=== PATIENT | female | born 1970 | race Caucasian/White ===

== ENCOUNTER 2016-07-06 11:14 | Emergency (ER) | payer SELFPAY ==
[2016-07-06] MEDS ORDERED: ASPIRIN TABLET 325 MG TAB ONE (11:32)
[2016-07-06 11:41] VITALS: TEMP 97.9
[2016-07-06] MEDS ORDERED: ASPIRIN TABLET 325 MG TAB PO ONE (11:42)
--- NOTE | 2016-07-06 11:46 | RAD ---
EXAM DESCRIPTION: Chest,1 View CLINICAL HISTORY: chest pain COMPARISON: November 13, 2015 IMPRESSION: Single AP portable upright view of the chest shows mild enlargement of cardiac silhouette without pulmonary vascular congestion. Lungs are normally aerated and clear. No obvious pleural effusion or pneumothorax is seen. Electronically signed by: Anuj Sheffield MD 07/06/2016 11:45 AM [facility]
[2016-07-06] MEDS ORDERED: MAGNESIUM SULFATE PREMIX 2GM 2 GM in PREMIX BAG 1 BAG IVPB ONE (13:11)
[2016-07-06] MEDS ORDERED: MAGNESIUM SULFATE PREMIX 2GM 50 ML IVPB ONE (13:20)
[2016-07-06] MEDS ORDERED: LIDOCAINE VIS-MYLANTA 30 ML UD PO ONE (13:42)
--- NOTE | 2016-07-06 15:32 | ED.PDOC ---
History of Present Illness - General Chief Complaint: Chest Pain/VT Stated Complaint: chest pain Time Seen by Provider: 07/06/16 11:45 Source: patient Exam Limitations: no limitations - History of Present Illness Initial Comments: the patient is a 45-year-old female presenting to the emergency room secondary to chest pain that radiates up her neck into her scalp. The patient has had similar episodes in the past. She is currently having gastrointestinal issues that is being worked up by her primary care doctor and has been on a very restricted diet for the last 7-8 months. She has lost 30-40 pounds according to her in that time. She admits to not being very well-hydrated. 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 She is not really short of breath. The pain is fairly superficial and her chest wall on both sides of her sternum significantly uncomfortable to palpation. No vomiting. Questionable nausea. No CV or near syncope. No palpitations. She is not previously had any heart issues. No rash. No sore throat. No fever. Again she does have multiple chronic GI issues. Timing/Duration: 1 hour Severity: moderate Improving Factors: rest Worsening Factors: movement Associated Symptoms: malaise, weakness Allergies/Adverse Reactions: Allergies Ampicillin Allergy (Verified 11/13/15 10:20) Home Medications: Ambulatory Orders ALPRAZolam [Xanax] 0.5 mg PO QAM 01/29/14 Cephalexin [Keflex] 500 mg PO BID #14 cap 01/29/14 Lisinopril 20 mg PO QAM 01/29/14 Alum & Mag Hydrox-Simethicone [Mylanta] 0 ml PO TID #60 ud 11/13/15 Amlodipine Besylate [Norvasc] 2.5 mg PO QAM #30 tab 11/13/15 Omeprazole Magnesium [Prilosec Otc] 20 mg PO QAM #30 tab 11/13/15 Review of Systems - Review of Systems Constitutional: States: no symptoms reported EENTM: States: no symptoms reported Respiratory: States: no symptoms reported Cardiology: States: chest pain Gastrointestinal/Abdominal: States: see HPI Genitourinary: States: no symptoms reported Musculoskeletal: States: other - chest wall pain Skin: States: no symptoms reported Neurological: States: anxiety Endocrine: States: no symptoms reported All other Systems: No Change from Baseline Past Medical History (General) - Patient Medical History Hx Seizures: No Hx Stroke: No Hx Dementia: No Hx Asthma: No Hx of COPD: No Hx Cardiac Disorders: No Hx Congestive Heart Failure: No Hx Pacemaker: No Hx Hypertension: Yes Hx Thyroid Disease: No Hx Diabetes: No Hx Gastroesophageal Reflux: No Hx Renal Disease: No Hx Cancer: No Hx of HIV: No Hx Hepatitis C: No Hx MRSA: No - Vaccination History Hx Tetanus, Diphtheria Vaccination: No Hx Influenza Vaccination: No Hx Pneumococcal Vaccination: No - Social History Hx Tobacco Use: No Hx Alcohol Use: No Hx Substance Use: No Hx Substance Use Treatment: No Hx Depression: No - Female History Patient is a Female of Child Bearing Age (10 -59 yrs old): Yes Patient : No Family Medical History - Family History Mother Living Status: Still Living Physical Exam - Physical Exam General Appearance: Alert, Anxious, No apparent distress Eye Exam: bilateral normal Ears, Nose, Throat: normal ENT inspection, normal pharynx Neck: non-tender, full range of motion, supple Respiratory: lungs clear, normal breath sounds, no respiratory distress, no accessory muscle use, other - chest wall is still uncomfortable to palpation as described above Cardiovascular/Chest: normal peripheral pulses, regular rate, rhythm, no edema Peripheral Pulses: radial,right: 2+, radial,left: 2+, dorsalis pedis,right: 2+, dorsalis pedis,left: 2+ Gastrointestinal/Abdominal: normal bowel sounds, non tender, soft Rectal Exam: deferred Back Exam: normal inspection, no CVA tenderness Extremity: normal range of motion, non-tender, normal inspection, no pedal edema , normal capillary refill Neurologic: 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 Repeat EKGs and cardiac enzymes are reassuring. The patient does have some hypomagnesemia which may be contributing to the muscle spasms and was given 2 g of magnesium sulfate here. The patient does have significant dietary restrictions and she is likely getting deficient on some vitamins and micronutrients. I recommend that she take a Centrum Silver in one form or another daily to help reduce this issue. Additionally she will be written for magnesium oxide daily for the next 2 weeks. She needs to keep well hydrated and follow up with her primary care doctor for continuation of the evaluation of her gastrointestinal issues. Additionally I would recommend a simple exercise tolerance test for this patient for further risk stratification. For now I do recommend holding the aspirin due to her gastrointestinal issues. Return to the emergency room for any acute worsening. she does need follow-up with her primary care doctor towards the end of this week or early next week. - Results/Orders Results/Orders: Laboratory Tests 07/06/16 07/06/16 07/06/16 11:30 11:50 14:55 WBC 12.3 H RBC 4.21 Hgb 14.2 Hct 41.5 MCV 98.4 MCH 33.8 H MCHC 34.3 RDW 13.3 Plt Count 424 H MPV 7.2 L Absolute Neuts (auto) 7.60 H Absolute Lymphs (auto) 3.70 H Absolute Monos (auto) 0.70 Absolute Eos (auto) 0.10 Absolute Basos (auto) 0.20 H Neutrophils % 61.9 Lymphocytes % 30.3 Monocytes % 5.6 Eosinophils % 1.0 Basophils % 1.2 PT 11.1 INR 0.980 PTT (SP) 31.0 D-Dimer, Quantitative < 200 Sodium 134 L Potassium 3.7 Chloride 95 L Carbon Dioxide 29 Anion Gap 13.7 BUN 13 Creatinine 0.68 BUN/Creatinine Ratio 19.1 Random Glucose 101 Serum Osmolality 268.5 L Calcium 9.3 Magnesium 1.6 L Total Bilirubin 0.4 Direct Bilirubin 0.1 Indirect Bilirubin 0.3 AST 33 ALT 29 Alkaline Phosphatase 85 Creatine Kinase 101 91 CK-MB (CK-2) 3.0 CK-MB (CK-2) % Not Reportable Troponin I < 0.02 < 0.02 B-Natriuretic Peptide 53.2 Serum Total Protein 7.3 Albumin 3.5 Amylase 42 Lipase 37 TSH 1.71 Urine Color Yellow Urine Appearance Clear Urine pH 6.5 Ur Specific [place] 1.020 Urine Protein Negative Urine Glucose (UA) Negative Urine Ketones Negative Urine Blood Moderate H Urine Nitrite Negative Urine Bilirubin Negative Urine Urobilinogen 0.2 Ur Leukocyte Esterase Negative Urine RBC 1-3 Urine WBC 0-1 Ur Epithelial Cells 3-5 Urine Bacteria 1+ Urine Trichomonas 0-1 H Urine HCG, Qual Negative chest x-ray appears benign. Initial and repeat EKGs show normal sinus rhythm. Nonspecific T-wave abnormalities. No acute ST segment depression or elevation. Departure - Departure Clinical Impression: Chest wall discomfort, Hypomagnesemia Disposition: Discharge to Home or Self Care Condition: Fair Departure Forms: ED Discharge - Pt. Copy, Patient Portal Self Enrollment Instructions: DI for Atypical Chest Pain Diet: other - Resume patient's lactose-free and gluten-free diet Activity: increase activity as tolerated Home Medications: Ambulatory Orders ALPRAZolam [Xanax] 0.5 mg PO QAM 01/29/14 Cephalexin [Keflex] 500 mg PO BID #14 cap 01/29/14 Lisinopril 20 mg PO QAM 01/29/14 Alum & Mag Hydrox-Simethicone [Mylanta] 0 ml PO TID #60 ud 11/13/15 Amlodipine Besylate [Norvasc] 2.5 mg PO QAM #30 tab 11/13/15 Omeprazole Magnesium [Prilosec Otc] 20 mg PO QAM #30 tab 11/13/15 Additional Instructions: the patient is a 45-year-old female presenting with chest pain that appears to be musculoskeletal in nature from the chest wall itself. Repeat EKGs and cardiac enzymes are reassuring. The patient does have some hypomagnesemia which may be contributing to the muscle spasms and was given 2 g of magnesium sulfate here. The patient does have significant dietary restrictions and she is likely getting deficient on some vitamins and micronutrients. I recommend that she take a Centrum Silver in one form or another daily to help reduce this issue. Additionally she will be written for magnesium oxide daily for the next 2 weeks. She needs to keep well hydrated and follow up with her primary care doctor for continuation of the evaluation of her gastrointestinal issues. Additionally I would recommend a simple exercise tolerance test for this patient for further risk stratification. For now I do recommend holding the aspirin due to her gastrointestinal issues. Return to the emergency room for any acute worsening. she does need follow-up with her primary care doctor towards the end of this week or early next week.
[2016-07-06 15:58] VITALS: BP 120/82; O2SAT 97
== END 2016-07-06 16:34 | disposition home or self-care (01) ==
LOC: ER 11:14
DX: R07.89 Other chest pain (principal); E83.42 Hypomagnesemia; I10 Essential (primary) hypertension; Z88.3 Allergy status to other anti-infective agents; Z79.899 Other long term (current) drug therapy
CPT/HCPCS: 36415; 71010; 80048; 80076; 81001; 81025; 82150; 82550; 82553; 83690; 83735; 83880; 84443; 84484; 85025; 85379; 85610; 85730; 93005; J3475

== ENCOUNTER 2017-01-25 13:14 | Emergency (ER) | payer SELFPAY ==
[2017-01-25 13:37] VITALS: BP 104/57; TEMP 98.6; O2SAT 95
--- NOTE | 2017-01-25 14:10 | ED.PDOC ---
History of Present Illness - General Chief Complaint: Abdominal Pain Stated Complaint: abdominal pain Time Seen by Provider: 01/25/17 14:07 Source: patient Exam Limitations: no limitations - History of Present Illness Initial Comments: Shanique Christian 46 y/o female stated she had been having "jakob horse" pain on her left side of her abdomen and also involves right side.She has Crohns w/IBS nad had multiple colonoscopy and egd in the past. Has chronic diarrhea.Had this in the past and was noted that she was low on magnesium Timing/Duration: 24 hours Severity: moderate Improving Factors: nothing Worsening Factors: nothing Associated Symptoms: loss of appetite, other - metallic taste in the tongue Allergies/Adverse Reactions: Allergies Ampicillin Allergy (Verified 01/25/17 13:37) Home Medications: Ambulatory Orders ALPRAZolam [Xanax] 0.5 mg PO QAM 01/29/14 Cephalexin [Keflex] 500 mg PO BID #14 cap 01/29/14 Lisinopril 20 mg PO QAM 01/29/14 Alum & Mag Hydrox-Simethicone [Mylanta] 0 ml PO TID #60 ud 11/13/15 Amlodipine Besylate [Norvasc] 2.5 mg PO QAM #30 tab 11/13/15 Omeprazole Magnesium [Prilosec Otc] 20 mg PO QAM #30 tab 11/13/15 Review of Systems - Review of Systems Constitutional: States: no symptoms reported EENTM: States: no symptoms reported Respiratory: States: no symptoms reported Cardiology: States: no symptoms reported Gastrointestinal/Abdominal: States: see HPI Genitourinary: States: no symptoms reported Past Medical History (General) - Patient Medical History Hx Seizures: No Hx Stroke: No Hx Dementia: No Hx Asthma: No Hx of COPD: No Hx Cardiac Disorders: No Hx Congestive Heart Failure: No Hx Pacemaker: No Hx Hypertension: Yes Hx Thyroid Disease: No Hx Diabetes: No Hx Gastroesophageal Reflux: No Hx Renal Disease: No Hx Cancer: No Hx of HIV: No Hx Hepatitis C: No Hx MRSA: No Hx Other PMH: Yes - Crohns/IBS Surgical History: appendectomy, other - - Vaccination History Hx Tetanus, Diphtheria Vaccination: No Hx Influenza Vaccination: No Hx Pneumococcal Vaccination: No - Social History Hx Tobacco Use: Yes Hx Alcohol Use: No Hx Substance Use: No Hx Substance Use Treatment: No Hx Depression: No - Female History Patient is a Female of Child Bearing Age (10 -59 yrs old): Yes Hx Last Menstrual Period: 01/16/17 Patient : No - Triage Comment ED Triage Comment: lmp- 1 week ago Family Medical History - Family History Mother Living Status: Still Living Hx Family Hypertension: Yes - dad Hx Family Stroke: Yes - dad Hx Family;Other: osteoporosis Physical Exam - Physical Exam General Appearance: Alert, No apparent distress Eye Exam: bilateral normal Ears, Nose, Throat: hearing grossly normal, normal ENT inspection, normal pharynx Neck: non-tender, supple Respiratory: chest non-tender, lungs clear, normal breath sounds Cardiovascular/Chest: normal peripheral pulses, regular rate, rhythm, no murmur Peripheral Pulses: radial,right: 1+, radial,left: 1+ Gastrointestinal/Abdominal: normal bowel sounds, soft, no organomegaly, tenderness - left side abdomen no peritoneal signs Back Exam: normal inspection, no CVA tenderness Extremity: normal range of motion, non-tender, no pedal edema, no calf tenderness Neurologic: no motor/sensory deficits, alert, oriented x 3 Skin Exam: warm/dry Lymphatic: no adenopathy Progress - Progress Progress: 01/25/17 14:16 Vital Signs - 8 hr 01/25/17 13:20 Temperature 98.6 F Pulse Rate [ 102 H pulse ox] Respiratory 20 Rate Blood Pressure 104/57 [Left Arm] O2 Sat by Pulse 95 Oximetry - Results/Orders Results/Orders: Declined further testing was upset after telling her that theres a treatment for crohns and ibs she mentioned that it was expensive and telling that she just eat chicken noodle soup and rice to prevent her from getting diarrhea.I stated that she needs to get help to get a goverment insurance.She walked out and left. Departure - Departure Clinical Impression: Abdominal pain Qualifiers: Abdominal location: upper abdomen, unspecified Qualified Code(s): R10.10 - Upper abdominal pain, unspecified Time of Disposition: 14:33 Disposition: Left Against Medical Advice Condition: Fair Departure Forms: ED Discharge - Pt. Copy, Patient Portal Self Enrollment Instructions: DI for Abdominal Pain-Adult Referrals: Gonzalez Fournier MD [Primary Care Provider] - 1-2 Weeks Home Medications: Ambulatory Orders ALPRAZolam [Xanax] 0.5 mg PO QAM 01/29/14 Cephalexin [Keflex] 500 mg PO BID #14 cap 01/29/14 Lisinopril 20 mg PO QAM 01/29/14 Alum & Mag Hydrox-Simethicone [Mylanta] 0 ml PO TID #60 ud 11/13/15 Amlodipine Besylate [Norvasc] 2.5 mg PO QAM #30 tab 11/13/15 Omeprazole Magnesium [Prilosec Otc] 20 mg PO QAM #30 tab 11/13/15
== END 2017-01-25 14:27 | disposition left against medical advice (07) ==
LOC: ER 13:14
DX: R10.10 Upper abdominal pain, unspecified (principal); K50.90 Crohn's disease, unspecified, without complications; K58.9 Irritable bowel syndrome, unspecified; I10 Essential (primary) hypertension; Z87.891 Personal history of nicotine dependence; Z88.3 Allergy status to other anti-infective agents

== ENCOUNTER → 2017-05-17 | Outpatient (CLI) | payer OTHER ==
--- NOTE | 2017-05-18 22:28 | US ---
EXAM DESCRIPTION: Breast,Left: Ultrasound CLINICAL HISTORY: 46 yearsFemaleLEFT BREAST LUMP COMPARISON: Digital 3-D tomosynthesis diagnostic mammogram, bilateral breasts on the same visit. TECHNIQUE: Transcutaneous scanning of the lateral left breast utilizing two-dimensional and Doppler modes. Scanning performed by the welding machine assembler and Dr. Hamilton. FINDINGS: Heterogeneous fibroglandular and fatty tissues. No discrete solid mass or cyst. No skin changes or parenchymal edema. No large calcifications. Normal Doppler appearance. IMPRESSION: 1. Bi-Rads Category 2: Benign. 2. Please refer to bilateral 3-D tomosynthesis diagnostic mammogram and report on the same visit The FINDINGS and the follow-up plan were reviewed in person with the patient after the examination. Written communication explaining the IMPRESSION and follow-up will be mailed to the patient and referring care provider. Electronically signed by: Wilner Hamilton MD 05/18/2017 10:27 PM [facility] Workstation: [id number]
== END | disposition home or self-care (01) ==
LOC: MAMMO 12:52
PROVIDERS: ATTEND Family Medicine
DX: N63.20 Unspecified lump in the left breast, unspecified quadrant (principal)
CPT/HCPCS: 76641; 77066; G0279

== ENCOUNTER → 2017-06-19 | Outpatient (CLI) | payer SELFPAY | LOC: LAB.O 14:05 | PROVIDERS: ATTEND General Practice | DX: R53.83 Other fatigue (principal); R23.3 Spontaneous ecchymoses ==

== ENCOUNTER 2017-06-20 14:51 | Emergency (ER) | payer SELFPAY ==
[2017-06-20 15:32] VITALS: TEMP 99.3
--- NOTE | 2017-06-20 16:15 | RAD ---
EXAM DESCRIPTION: Femur,Right CLINICAL HISTORY: posterior brusing of uncertain cause COMPARISON: None. TECHNIQUE: AP and lateral right femur FINDINGS: A small bone island is observed in the medial femoral condyle. No fracturing is detected. No evidence of joint effusion is seen. IMPRESSION: Normal right femur. Electronically signed by: Kamran Day MD 06/20/2017 4:14 PM [facility]
--- NOTE | 2017-06-20 16:16 | RAD ---
EXAM DESCRIPTION: Tibia/Fibula,Right CLINICAL HISTORY: posterior brusing of uncertain cause COMPARISON: None. TECHNIQUE: AP and lateral right tibia and fibula FINDINGS: Seen no bone joint or soft tissue abnormality. IMPRESSION: Normal right tibia and fibula. Electronically signed by: Kamran Day MD 06/20/2017 4:15 PM [facility]
--- NOTE | 2017-06-20 17:05 | ED.PDOC ---
History of Present Illness - General Chief Complaint: General Stated Complaint: right knee pain Time Seen by Provider: 06/20/17 15:41 Source: patient Exam Limitations: no limitations - History of Present Illness Initial Comments: the patient is a 46-year-old female presenting to the emergency room secondary to bruising tracking down the posterior aspect of her leg. It starts approximately mid posterior thigh and extends down to mid calf. She has good pulses. She has no tenderness to palpation towards the anterior calf, anterior thigh or anterior knee. All of her tenderness is in the area where she has bruising. This obviously is a deep tissue bleed that has bled superficially. There are no lacerations. No evidence of abrasion or superficial bruising. She has not had any irregular bleeding in the past. No bleeding of the gums. No heavy menses in the past. she is not on any blood thinners. She had a CBC done yesterday that looks roughly normal. No symptoms of anemia. She is uncertain what caused this. The pain however started with the bruising and most of it started approximately 3-4 inches above the knee posteriorly and somewhat laterally. I do feel the insertion of both hamstrings however there is tenderness proximally. I do not feel anydefinite balled up muscle there were definite mass. this is most likely due to a distal third lateral hamstring partial tear. She does appear to be neurovascularly intact. She believes the process started approximately 3 or 4 days ago. She reports that she just woke up with it. 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 This is the most likely source of trauma for her. She has not had any falls. the patient has no bruising elsewhere. She has no oral petechia. No conjunctival hemorrhage. Timing/Duration: unsure Severity: moderate Improving Factors: immobilization Worsening Factors: movement Associated Symptoms: denies symptoms Allergies/Adverse Reactions: Allergies Ampicillin Allergy (Verified 06/20/17 15:32) Home Medications: Ambulatory Orders ALPRAZolam [Xanax] 0.5 mg PO QAM 01/29/14 Cephalexin [Keflex] 500 mg PO BID #14 cap 01/29/14 Lisinopril 20 mg PO QAM 01/29/14 Alum & Mag Hydrox-Simethicone [Mylanta] 0 ml PO TID #60 ud 11/13/15 Amlodipine Besylate [Norvasc] 2.5 mg PO QAM #30 tab 11/13/15 Omeprazole Magnesium [Prilosec Otc] 20 mg PO QAM #30 tab 11/13/15 Review of Systems - Review of Systems Constitutional: States: no symptoms reported EENTM: States: no symptoms reported Respiratory: States: no symptoms reported Cardiology: States: no symptoms reported Gastrointestinal/Abdominal: States: no symptoms reported Genitourinary: States: no symptoms reported Musculoskeletal: States: see HPI Skin: States: see HPI Neurological: States: no symptoms reported Endocrine: States: no symptoms reported All other Systems: No Change from Baseline Past Medical History (General) - Patient Medical History Hx Seizures: No Hx Stroke: No Hx Dementia: No Hx Asthma: No Hx of COPD: No Hx Cardiac Disorders: No Hx Congestive Heart Failure: No Hx Pacemaker: No Hx Hypertension: Yes Hx Thyroid Disease: No Hx Diabetes: No Hx Gastroesophageal Reflux: No Hx Renal Disease: No Hx Cancer: No Hx of HIV: No Hx Hepatitis C: No Hx MRSA: No - Vaccination History Hx Tetanus, Diphtheria Vaccination: Yes Hx Influenza Vaccination: No Hx Pneumococcal Vaccination: No - Social History Hx Tobacco Use: Yes Hx Alcohol Use: No Hx Substance Use: No Hx Substance Use Treatment: No Hx Depression: No - Female History Hx Last Menstrual Period: 01/16/17 Patient : No Family Medical History - Family History Mother Living Status: Still Living Hx Family Hypertension: Yes - dad Hx Family Stroke: Yes - dad Hx Family;Other: osteoporosis Physical Exam - Physical Exam General Appearance: Alert, Comfortable, No apparent distress Eye Exam: bilateral normal Ears, Nose, Throat: hearing grossly normal, normal ENT inspection, normal pharynx Neck: full range of motion, supple, normal inspection Respiratory: no respiratory distress, no accessory muscle use Cardiovascular/Chest: normal peripheral pulses, no edema Peripheral Pulses: radial,right: 2+, radial,left: 2+, dorsalis pedis,right: 2+, dorsalis pedis,left: 2+, posterior tibialis,right: 2+, posterior tibialis,left: 2+ Gastrointestinal/Abdominal: non tender, soft Rectal Exam: deferred Extremity: normal range of motion, no pedal edema, normal capillary refill, other - ee history of present illness 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 Progress - Progress Progress: 06/20/17 17:08 the patient is a 46-year-old female with a posterior right leg deep tissue hematoma that is likely a result of a partial tear of her right distal third lateral hamstring. The patient does need to do gentle stretching exercises. Topical heat may help. Intermittent Tylenol and Motrin may help. X -rays were reassuring. If the patient has a recurrence of bleeding at this site or bleeding elsewhere or spontaneous bruising elsewhere then she may require additional workup including additional laboratory work and possibly a soft tissue MRI. She does understand this. She does need follow-up with her primary care doctor next week. Additionally she can obtain a compression stocking that is a long compression stocking to use to help reduce discomfort and any edema. ER warnings are given for any significant worsening. Departure - Departure Clinical Impression: Leg hematoma Qualifiers: Encounter type: initial encounter Laterality: right Qualified Code(s): S80.11XA - Contusion of right lower leg, initial encounter Disposition: Discharge to Home or Self Care Condition: Fair Departure Forms: ED Discharge - Pt. Copy, Patient Portal Self Enrollment Diet: regular diet Activity: increase activity as tolerated Referrals: Gonzalez Fournier MD [Primary Care Provider] - 1-2 Weeks Home Medications: Ambulatory Orders ALPRAZolam [Xanax] 0.5 mg PO QAM 01/29/14 Cephalexin [Keflex] 500 mg PO BID #14 cap 01/29/14 Lisinopril 20 mg PO QAM 01/29/14 Alum & Mag Hydrox-Simethicone [Mylanta] 0 ml PO TID #60 ud 11/13/15 Amlodipine Besylate [Norvasc] 2.5 mg PO QAM #30 tab 11/13/15 Omeprazole Magnesium [Prilosec Otc] 20 mg PO QAM #30 tab 11/13/15 Additional Instructions: the patient is a 46-year-old female with a posterior right leg deep tissue hematoma that is likely a result of a partial tear of her right distal third lateral hamstring. The patient does need to do gentle stretching exercises. Topical heat may help. Intermittent Tylenol and Motrin may help. X -rays were reassuring. If the patient has a recurrence of bleeding at this site or bleeding elsewhere or spontaneous bruising elsewhere then she may require additional workup including additional laboratory work and possibly a soft tissue MRI. She does understand this. She does need follow-up with her primary care doctor next week. Additionally she can obtain a compression stocking that is a long compression stocking to use to help reduce discomfort and any edema. ER warnings are given for any significant worsening.
[2017-06-20 17:19] VITALS: BP 131/67; O2SAT 93
== END 2017-06-20 17:19 | disposition home or self-care (01) ==
LOC: ER 14:51
DX: S80.11XA Contusion of right lower leg, initial encounter (principal); I10 Essential (primary) hypertension; Z87.891 Personal history of nicotine dependence; X58.XXXA Exposure to other specified factors, initial encounter; Y92.9 Unspecified place or not applicable

== ENCOUNTER → 2017-07-03 | Outpatient (CLI) | payer SELFPAY ==
--- NOTE | 2017-07-03 14:05 | US ---
EXAM DESCRIPTION:Venous,Lower Extremity RT CLINICAL HISTORY:PAIN COMPARISON: None TECHNIQUE: Grayscale and color Doppler sonographic evaluation of lower extremity deep venous structures. FINDINGS: Common femoral, superficial femoral , popliteal , peroneal and posterior tibial veins in right lower extremity are patent with full compressibility. No intraluminal filling defect identified in these deep venous structures. IMPRESSION: No sonographic evidence of deep venous thrombosis (DVT) in right lower extremity Electronically signed by: Los Whitaker MD 07/03/2017 2:04 PM [employer]INDING [employer]EL [employer]
== END ==
LOC: US 13:18
PROVIDERS: ATTEND General Practice
DX: M79.661 Pain in right lower leg (principal)

== ENCOUNTER 2017-07-05 10:42 | Emergency (ER) | payer SELFPAY ==
--- NOTE | 2017-07-05 11:25 | ED.PDOC ---
History of Present Illness - General Chief Complaint: Lower Extremity Injury Stated Complaint: bilateral leg pain; bruising Time Seen by Provider: 07/05/17 11:06 Source: patient - History of Present Illness Occurred: other - 3 WEEKS AGO Pain - Lower Extremity: moderate: Right Thigh/Hip, Right Leg, Right Knee, Right Calf, Left Foot Method of Injury: other - NO KNOWN TRAUMA Improving Factors: nothing Worsening Factors: movement Associated Symptoms: NONE Allergies/Adverse Reactions: Allergies Ampicillin Allergy (Verified 06/20/17 15:32) Home Medications: Ambulatory Orders ALPRAZolam [Xanax] 1 mg PO BID 01/29/14 Lisinopril 20 mg PO QAM 01/29/14 Ciprofloxacin 500 mg PO BID #10 ml 07/05/17 Citalopram Hydrobromide [Celexa] 10 mg PO DAILY 07/05/17 HYDROcodone 10MG/APAP 325MG [[place] 10/325] 0.5 ea PO Q4HR PRN 07/05/17 predniSONE 60 mg PO DAILY #15 tab 07/05/17 Review of Systems - Review of Systems Constitutional: Denies: fever, malaise, weakness EENTM: States: no symptoms reported, other - NO BLEEDING WITH TEETH BRUSHING Respiratory: Denies: cough, short of breath Cardiology: Denies: edema, palpitations Gastrointestinal/Abdominal: Denies: abdominal pain, diarrhea, nausea, vomiting Genitourinary: Denies: discharge, dysuria, frequency, hematuria Musculoskeletal: States: joint pain - RT KNEE, LEFT FOOT, muscle pain. Denies: joint swelling Skin: States: other - REPORTS BRUISING TO RT THIGH/RT CALF/LEFT FOOT Neurological: States: anxiety, depressed. Denies: numbness, paresthesia, tingling, tremors Endocrine: Denies: excessive sweating, flushing, intolerance to cold, intolerance to heat, increased hunger, increased thirst, increased urine Past Medical History (General) - Patient Medical History Hx Seizures: No Hx Stroke: No Hx Dementia: No Hx Asthma: No Hx of COPD: No Hx Cardiac Disorders: No Hx Congestive Heart Failure: No Hx Pacemaker: No Hx Hypertension: Yes Hx Thyroid Disease: No Hx Diabetes: No Hx Gastroesophageal Reflux: No Hx Renal Disease: No Hx Cancer: No Hx of HIV: No Hx Hepatitis C: No Hx MRSA: No Surgical History: appendectomy, other - Vaccination History Hx Tetanus, Diphtheria Vaccination: Yes Hx Influenza Vaccination: No Hx Pneumococcal Vaccination: No - Social History Hx Tobacco Use: Yes Hx Alcohol Use: No Hx Substance Use: No Hx Substance Use Treatment: No Hx Depression: No - Female History Hx Last Menstrual Period: 01/16/17 Patient : No Family Medical History - Family History Mother Living Status: Still Living Hx Family Hypertension: Yes - dad Hx Family Stroke: Yes - dad Hx Family;Other: osteoporosis Physical Exam - Physical Exam General Appearance: Agitated, Anxious, Restless, Well Hydrated, Well Nourished Eyes, Ears, Nose, Throat: normal ENT inspection Neck: full range of motion, supple Cardiovascular/Respiratory: regular rate, rhythm, no JVD, other - NO RESPIRATORY DISTRESS, NO TACHYPNEA, NO ACCESSORY MUSCLE USE Gastrointestinal/Abdominal: non-tender, other - NO GUARDING, NO RIGIDITY, NO REFERRED PAIN Thigh/Hip: ecchymosis, soft tissue tenderness, other - THERE IS OLD BRUISING NOTED TO THE RT THIGH AND RT CALF. SOME BRUISING NOTED TO THE DORSUM OF THE LEFT FOOT. FULL ROM OF THE BLE. THERE IS NO VESICULAR LESIONS, THERE IS NO PURPURA Leg: normal ROM, soft tissue tenderness Knee: normal ROM, ecchymosis, soft tissue tenderness Ankle: other - NO SWELLING/BRUISING NOTED ON THE ANKLE Foot: deformity, ecchymosis, soft tissue tenderness, other - NO MARKED EDEMA TO THE LEFT FOOT THERE IS SOME SOFT TISSUE SWELLING. GOOD CAP REFILL. Neuro/Tendon: normal sensation, normal motor functions Mental Status: alert, oriented x 3, other - ANXIOUS, TEARFULL, REPORTED TO ME MULTIPLE TIMES THAT SHE IS "ABOUT READY TO CRY" Skin: other - NO JAUNDICE, NO PALLOR, NO RASH Progress - Progress Progress: 07/05/17 11:32 HERE WITH 3 WEEKS OF BRUISING TO THE BLE. INITIALLY STARED ON THE RT. NOW INVOLVING THE LEFT FOOT. THERE IS NO TRAUMA. DOES NOT APPEAR TO BE VERICOSITY. SHE IS VERY ANXIOUS. SHE TAKES BOTH BZD AND OPIATES ALREADY. WITHOUT LONG BONE DEFORMITY WILL HOLD ON OPIATE ANALGESIA AT THIS TIME. WILL EVAL FOR COAGULOPATHY , LIVER FUNCTION, ANEMIA, FRACTURE, DISLOCATION. 07/05/17 12:51 HAS AN ELEVAED WBC, D-DIMER, CRP. WOULD CONSIDER VASCULITIS, DVT, INFECTIOUS ETIOLOGY. WILL ADD LACTATE AND BLOOD CULTURES. WILL DOSE WITH IV STEROIDS AND ABX. WILL DISCUSS WITH HER PCP. 07/05/17 14:02 SONO SHOWS NO DVT, I HAVE DISCUSSED WITH HER PCP. HE WILL SEE HER IN FOLLOW UP. AGREES WITH PLAN FOR STEROIDS. - Results/Orders Results/Orders: foot xray shows no fx, but does show mild soft tissue swelling. labs show a leukocytosis, elevated crp, elevated d-dimer. will give IV steroids for suspected vasculitis. Will get a repeat sonogram. Will send blood cultures, she does have a uti, will give a dose of IV abx and put on abx for that. will need close follow up. 07/05/17 11:24 ERYTHROCYTE SEDIMENTATION RATE Stat 07/05/17 12:18 Venous,Lower Extremity LT [US] Stat 07/05/17 12:19 Venous,Lower Extremity RT [US] Stat 07/05/17 12:20 BLOOD CULTURE Stat 07/05/17 12:22 LACTIC ACID Stat levoFLOXacin 750MG IV [Levaquin 750MG IV] 750 mg Premix Bag 1 bag IVPB ONCE EKG Assessment ONCE 07/05/17 12:30 EKG STAT Laboratory Results - last 24 hr 07/05/17 07/05/17 07/05/17 11:24 11:24 11:24 WBC 17.4 H RBC 3.56 L Hgb 12.3 Hct 36.6 MCV 102.5 H MCH 34.5 H MCHC 33.7 RDW 14.0 Plt Count 525 H MPV 7.5 Absolute Neuts (auto) 13.10 H Absolute Lymphs (auto) 3.20 Absolute Monos (auto) 0.70 Absolute Eos (auto) 0.20 Absolute Basos (auto) 0.10 Neutrophils % 75.6 Lymphocytes % 18.4 L Monocytes % 4.2 Eosinophils % 1.1 Basophils % 0.7 PT INR PTT (SP) D-Dimer, Quantitative 625 H* Sodium 132 L Potassium 3.4 L Chloride 93 L Carbon Dioxide 29 Anion Gap 13.4 BUN 12 Creatinine 0.93 BUN/Creatinine Ratio 12.9 Random Glucose 96 Serum Osmolality 264.1 L Calcium 9.4 Total Bilirubin 0.9 AST 24 ALT 14 Alkaline Phosphatase 92 C-Reactive Protein 3.1 H Serum Total Protein 7.6 Albumin 3.4 Globulin 4.2 H Albumin/Globulin Ratio 0.8 L Urine Color Urine Appearance Urine pH Ur Specific [place] Urine Protein Urine Glucose (UA) Urine Ketones Urine Blood Urine Nitrite Urine Bilirubin Urine Urobilinogen Ur Leukocyte Esterase Urine RBC Urine WBC Ur Epithelial Cells Urine Bacteria 07/05/17 07/05/17 11:24 11:25 WBC RBC Hgb Hct MCV MCH MCHC RDW Plt Count MPV Absolute Neuts (auto) Absolute Lymphs (auto) Absolute Monos (auto) Absolute Eos (auto) Absolute Basos (auto) Neutrophils % Lymphocytes % Monocytes % Eosinophils % Basophils % PT 11.6 INR 1.030 PTT (SP) 28.1 D-Dimer, Quantitative Sodium Potassium Chloride Carbon Dioxide Anion Gap BUN Creatinine BUN/Creatinine Ratio Random Glucose Serum Osmolality Calcium Total Bilirubin AST ALT Alkaline Phosphatase C-Reactive Protein Serum Total Protein Albumin Globulin Albumin/Globulin Ratio Urine Color Dk yellow H Urine Appearance Sl cloudy Urine pH 6.0 Ur Specific [place] 1.015 Urine Protein Negative Urine Glucose (UA) Negative Urine Ketones Negative Urine Blood Small H Urine Nitrite Negative Urine Bilirubin Negative Urine Urobilinogen 0.2 Ur Leukocyte Esterase Trace H Urine RBC 3-5 H Urine WBC 3-5 H Ur Epithelial Cells 5-10 Urine Bacteria 1+ - EKG/XRAY/CT EKG: Sinus - NORMAL SINUS RYTHM AT 87, AXIS IS NORMAL, INTERVALS IS NORMAL, NO ACUTE ST ELEVATION THERE IS DEPRESSION IN LEADS II, III, AVF, V3-V6 WITH T WAVE INVERSION. Departure - Departure Clinical Impression: Vasculitis, Leukocytosis, Thrombocytosis, Elevated C-reactive protein (CRP), Elevated erythrocyte sedimentation rate, Bilateral lower extremity pain, Contusion of leg, right, multiple sites, Anxiety, Left foot pain, UTI (urinary tract infection) Disposition: Discharge to Home or Self Care Condition: Fair Departure Forms: ED Discharge - Pt. Copy, Patient Portal Self Enrollment Instructions: DI for Leg Pain, Henoch-Schonlein Purpura Diet: full liquid diet Activity: increase activity as tolerated Referrals: Gonzalez Fournier MD [Primary Care Provider] - 1-2 Weeks Prescriptions: Ciprofloxacin 500 mg PO BID #10 ml predniSONE 60 mg PO DAILY #15 tab Home Medications: Ambulatory Orders ALPRAZolam [Xanax] 1 mg PO BID 01/29/14 Lisinopril 20 mg PO QAM 01/29/14 Ciprofloxacin 500 mg PO BID #10 ml 07/05/17 Citalopram Hydrobromide [Celexa] 10 mg PO DAILY 07/05/17 HYDROcodone 10MG/APAP 325MG [[place] ] 0.5 ea PO Q4HR PRN 07/05/17 predniSONE 60 mg PO DAILY #15 tab 07/05/17
--- NOTE | 2017-07-05 12:09 | RAD ---
EXAM DESCRIPTION: Foot,Left 2 Views CLINICAL HISTORY: 46 years Female, PAIN, BRUISING COMPARISON: None. FINDINGS: 2 views of the left foot show no acute fracture or malalignment. The joint spaces are well-maintained. There is a large plantar calcaneal enthesophyte. Soft tissue swelling is noted anterior to the left ankle joint. No radiopaque foreign body or soft tissue gas. IMPRESSION: Soft tissue swelling anterior to the left ankle, but no acute left foot abnormality. Plantar calcaneal spurring. Electronically signed by: Buzz Salomon MD 07/05/2017 12:08 PM [facility]
[2017-07-05] MEDS ORDERED: MORPHINE SULFATE INJ 10 MG/ML VIAL IV ONE (12:13)
[2017-07-05] MEDS ORDERED: methylPREDNISolone SODIUM SUC 125 MG/2 ML VIAL IV ONE (12:13)
[2017-07-05] MEDS ORDERED: ONDANSETRON INJ 4 MG/2 ML VIAL IV ONE (12:14)
[2017-07-05] MEDS ORDERED: levoFLOXacin 750MG IV 750 MG in PREMIX BAG 1 BAG IVPB ONE (12:22)
--- NOTE | 2017-07-05 13:43 | US ---
EXAM DESCRIPTION:Venous,Lower Extremity LT (accession [id number]), Venous,Lower Extremity RT (accession [id number]) CLINICAL HISTORY:swelling, bruising, elevated d-dimer, crp COMPARISON: None TECHNIQUE: Grayscale and color Doppler sonographic evaluation of lower extremity deep venous structures. FINDINGS: Common femoral, superficial femoral, popliteal, posterior tibial and peroneal veins in both lower extremity are patent with full compressibility. No intraluminal filling defect identified in these deep venous structures. IMPRESSION: No sonographic evidence of deep venous thrombosis (DVT) in either lower extremity Electronically signed by: Los Whitaker MD 07/05/2017 1:42 PM [employer]ILDING [employer]CTION [employer]
--- NOTE | 2017-07-05 13:43 | US ---
EXAM DESCRIPTION:Venous,Lower Extremity LT (accession [id number]), Venous,Lower Extremity RT (accession [id number]) CLINICAL HISTORY:swelling, bruising, elevated d-dimer, crp COMPARISON: None TECHNIQUE: Grayscale and color Doppler sonographic evaluation of lower extremity deep venous structures. FINDINGS: Common femoral, superficial femoral, popliteal, posterior tibial and peroneal veins in both lower extremity are patent with full compressibility. No intraluminal filling defect identified in these deep venous structures. IMPRESSION: No sonographic evidence of deep venous thrombosis (DVT) in either lower extremity Electronically signed by: Los Whitaker MD 07/05/2017 1:42 PM [employer]
[2017-07-05 15:07] VITALS: BP 183/81; TEMP 98.2; O2SAT 99
== END 2017-07-05 14:50 | disposition home or self-care (01) ==
LOC: ER 10:42
DX: M79.662 Pain in left lower leg (principal); M79.661 Pain in right lower leg; S80.11XA Contusion of right lower leg, initial encounter; I10 Essential (primary) hypertension; N39.0 Urinary tract infection, site not specified; D72.829 Elevated white blood cell count, unspecified; D47.3 Essential (hemorrhagic) thrombocythemia; F41.9 Anxiety disorder, unspecified; M79.672 Pain in left foot; R79.89 Other specified abnormal findings of blood chemistry; Z87.891 Personal history of nicotine dependence; X58.XXXA Exposure to other specified factors, initial encounter
CPT/HCPCS: 36415; 73620; 80053; 81001; 83605; 85025; 85379; 85610; 85651; 85730; 86140; 93005; 93971; J1956; J2270; J2405; J2930

== ENCOUNTER → 2017-07-21 | Outpatient (CLI) | payer SELFPAY | LOC: LAB.O 08:28 | DX: D72.829 Elevated white blood cell count, unspecified (principal) ==

== ENCOUNTER → 2017-07-31 | Outpatient (CLI) | payer SELFPAY | LOC: LAB.O 16:35 | PROVIDERS: ATTEND General Practice | DX: I10 Essential (primary) hypertension (principal) ==

== ENCOUNTER 2018-06-25 23:09 | Emergency (ER) | payer SELFPAY ==
[2018-06-25 23:44] VITALS: TEMP 98.1
--- NOTE | 2018-06-26 00:25 | ED.PDOC ---
History of Present Illness - General Chief Complaint: Chest Pain/NV Stated Complaint: Leg pain, chest pain, HTN Time Seen by Provider: 06/25/18 23:58 Source: patient - History of Present Illness Initial Comments: SHE HAS BEEN DIAGNOSED WITH SCURVY. SHE HAS BEEN SEEN BY DR. QIU BECAUSE OF A PURPURIC RASH AND WAS FOUND TO HAVE A LEFT RETRO-ORBITAL MASS ORBITAL MASS. SHE WAS JUST RELEASED FROM [facility] AND ON VITAMIN C TREATMENT AND MULTIVATIM TREATMENTS. TODAY WHILE AT HOME SHE HAD HEAD PRESSURE AND LEFT LEG PAIN. EVIDENTLY SHE HAS HAD THIS EPISODES PERIODICALLY. SHE ELECTED TO COME TO THE ED. SHE FELT THAT HER BP WAS HIGH. IT WAS 114 SYSTOLIC. REPEAT BP'S ARE IN THE LOW 90'S. HER PAIN HAS SUBSIDED AT THIS TIME AND SHE DESIRES TO LEAVE. SHE DOESNT WANT TREATMENT SINCE SHE HAS SEVERAL DOC IN [place]. [facility] TALKED TO HER IN DETAIL AND SHE IS AGREEABLE TO [facility]. Timing/Duration: 1/2 hour Severity: moderate Improving Factors: nothing Worsening Factors: nothing Allergies/Adverse Reactions: Allergies Ampicillin Allergy (Verified 06/20/17 15:32) Home Medications: Ambulatory Orders ALPRAZolam [Xanax] 1 mg PO BID 01/29/14 Lisinopril 20 mg PO QAM 01/29/14 HYDROcodone 10MG/APAP 325MG [[place] 10/325] 0.5 ea PO Q4HR PRN 07/05/17 Review of Systems - Review of Systems Constitutional: States: no symptoms reported EENTM: States: no symptoms reported Respiratory: States: no symptoms reported Cardiology: States: other - HAD A MANRIQUEZ THAT READIATED TO THE ANTERIOR CHEST AREA. Gastrointestinal/Abdominal: States: no symptoms reported Genitourinary: States: no symptoms reported Musculoskeletal: States: other - LEFT LEG PAIN- HAS SUBSIDED. Neurological: States: no symptoms reported Past Medical History (General) - Patient Medical History Hx Seizures: No Hx Stroke: No Hx Dementia: No Hx Asthma: No Hx of COPD: No Hx Cardiac Disorders: No Hx Congestive Heart Failure: No Hx Pacemaker: No Hx Hypertension: Yes Hx Thyroid Disease: No Hx Diabetes: No Hx Gastroesophageal Reflux: No Hx Renal Disease: No Hx Cancer: No Hx of HIV: No Hx Hepatitis C: No Hx MRSA: No Surgical History: appendectomy - Vaccination History Hx Tetanus, Diphtheria Vaccination: Yes Hx Influenza Vaccination: Yes Hx Pneumococcal Vaccination: No - Social History Hx Tobacco Use: Yes Hx Alcohol Use: No Hx Substance Use: No Hx Substance Use Treatment: No Hx Depression: No - Female History Hx Last Menstrual Period: 01/16/17 Patient : No Family Medical History - Family History Mother Living Status: Still Living Hx Family Hypertension: Yes - dad Hx Family Stroke: Yes - dad Hx Family;Other: osteoporosis Physical Exam - Physical Exam General Appearance: Other - BILATERAL CONJUNTIVA ARE INJECTED, MORE THE LEFT THAN THE RIGHT. Eyes, Ears, Nose, Throat Exam: PERRL/EOMI Neck: non-tender Respiratory: chest non-tender Cardiovascular/Chest: no gallop, no JVD, no murmur Gastrointestinal/Abdominal: normal bowel sounds, no organomegaly, no pulsatile mass Rectal Exam: deferred Extremity: other - MULTIPLE BRUISES TO THE SKIN, UPPER AND LOWER EXTREMITIES. Neurologic: no motor/sensory deficits, oriented x 3 Lymphatic: no adenopathy Departure - Departure Clinical Impression: Scurvy, Atypical chest pain Time of Disposition: 00:28 Disposition: Left Against Medical Advice Departure Forms: ED Discharge - Pt. Copy, Patient Portal Self Enrollment Referrals: Gonzalez Fournier MD [Primary Care Provider] - 1-2 Weeks Home Medications: Ambulatory Orders ALPRAZolam [Xanax] 1 mg PO BID 01/29/14 Lisinopril 20 mg PO QAM 01/29/14 HYDROcodone 10MG/APAP 325MG [[place] 10/325] 0.5 ea PO Q4HR PRN 07/05/17
[2018-06-26 00:37] VITALS: BP 91/58; O2SAT 97
== END 2018-06-26 00:38 | disposition left against medical advice (07) ==
LOC: ER 23:09
DX: R07.89 Other chest pain (principal); E54 Ascorbic acid deficiency; R51 Headache; M79.605 Pain in left leg; I10 Essential (primary) hypertension; Z53.29 Procedure and treatment not carried out because of patient's decision for other reasons; Z88.0 Allergy status to penicillin; Z79.899 Other long term (current) drug therapy; Z87.891 Personal history of nicotine dependence

== ENCOUNTER 2019-03-31 14:37 | Inpatient (IN) | payer SELFPAY ==
[2019-03-31] MEDS ORDERED: IPRATROPIUM/ALBUTEROL 3 ML VIAL NEB ONE ×3 (14:44→15:37)
[2019-03-31] MEDS ORDERED: IPRATROPIUM/ALBUTEROL 3 ML VIAL INH ONE (14:51)
[2019-03-31] MEDS ORDERED: methylPREDNISolone SODIUM SUC 125 MG/2 ML VIAL IM ONE (14:52)
[2019-03-31] MEDS ORDERED: methylPREDNISolone SODIUM SUC 125 MG/2 ML VIAL IV ONE (15:03)
[2019-03-31] MEDS: SODIUM CHLORIDE 0.9% (FLUSH) 10 ML SYG IV PRN ×2 (15:13→23:56)
--- NOTE | 2019-03-31 15:35 | RAD ---
EXAM: Chest,1 View CLINICAL HISTORY: sob TECHNIQUE: Chest 1 view COMPARISON STUDY: July 06, 2016 FINDINGS: Hyperexpansion without consolidation, effusion, or edema. The heart is not enlarged. No acute osseous abnormality. IMPRESSION: Hyperexpansion can be seen with emphysema, reactive airway disease or deep voluntary breath. No acute abnormality is identified. Electronically signed by: Marco A Segovia MD 03/31/2019 3:34 PM GERIATRIC NURSE ASSISTANT
--- NOTE | 2019-03-31 15:59 | ED.PDOC ---
History of Present Illness - General Chief Complaint: Respiratory Problem Stated Complaint: Difficulty breathing Time Seen by Provider: 03/31/19 14:49 - History of Present Illness Initial Comments: c/o having allergies since 1 week then started sob and wheezes since yesterday , feeling very fatigue and weak , current smoker about 1/2 a pack , no chest pain or cough or fever or chills Severity: severe Activities at Onset: rest Improving Factors: nothing Worsening Factors: nothing Associated Symptoms: wheezing Allergies/Adverse Reactions: Allergies Ampicillin Allergy (Verified 03/31/19 19:55) has taken penicillin without any trouble and only had one episode with ampic illin when pregant Home Medications: Ambulatory Orders RX: ALPRAZolam [Xanax] 1 mg PO TID PRN 01/29/14 Lisinopril & Hydrochlorothiazi [Lisinopril/Hydrochlorothi 20-25 mg] 1 tab PO DAILY 03/31/19 Review of Systems - Review of Systems Constitutional: States: no symptoms reported EENTM: States: no symptoms reported Respiratory: States: see HPI Cardiology: States: no symptoms reported Genitourinary: States: no symptoms reported Musculoskeletal: States: no symptoms reported Skin: States: no symptoms reported Endocrine: States: no symptoms reported All other Systems: Reviewed and Negative Past Medical History (General) - Patient Medical History Hx Seizures: No Hx Stroke: No Hx Dementia: No Hx Asthma: No Hx of COPD: No Hx Cardiac Disorders: No Hx Congestive Heart Failure: No Hx Pacemaker: No Hx Hypertension: Yes Hx Thyroid Disease: No Hx Diabetes: No Hx Gastroesophageal Reflux: - Crohn's Hx Renal Disease: No Hx Cancer: No Hx of HIV: No Hx Hepatitis C: No Hx MRSA: No Surgical History: appendectomy - Vaccination History Hx Tetanus, Diphtheria Vaccination: Yes Hx Influenza Vaccination: Yes - 2019 Hx Pneumococcal Vaccination: No - Social History Hx Tobacco Use: Yes Hx Alcohol Use: Yes - Occasional use Hx Substance Use: No Hx Substance Use Treatment: No Hx Depression: No - Female History Patient is a Female of Child Bearing Age (10 -59 yrs old): No - Menopause Hx Last Menstrual Period: 01/16/17 Patient : No Family Medical History - Family History Mother Living Status: Still Living Hx Family Hypertension: Yes - dad Hx Family Stroke: Yes - dad Hx Family;Other: osteoporosis Physical Exam - Physical Exam General Appearance: Alert, Anxious, Restless Eyes, Ears, Nose, Throat Exam: PERRL/EOMI, normal ENT inspection Neck: non-tender, full range of motion Respiratory: chest non-tender, respiratory distress, wheezing, expiration Cardiovascular/Chest: regular rate, rhythm Gastrointestinal/Abdominal: non tender, soft Extremity: normal range of motion, non-tender, normal inspection, no pedal edema Neurologic: no motor/sensory deficits, alert, normal mood/affect, oriented x 3 Skin Exam: normal color Lymphatic: no adenopathy Progress - Results/Orders Results/Orders: 03/31/19 14:49 Sodium Chloride 0.9% (Flush) [Saline Flush Syringe] 10 ml IV PRN PRN 03/31/19 15:00 EKG STAT 03/31/19 15:34 SVN [SVN/Updraft Therapy] .PRN 03/31/19 15:57 CTA Chest [CT] Stat 04/01/19 09:00 Pulse Ox Daily Laboratory Results WBC 14.8 K/mm3 (4.8-10.8) H 03/31/19 14:50 RBC 5.02 M/mm3 (4.20-5.40) 03/31/19 14:50 Hgb 18.9 gm/dL (12.0-16.0) H 03/31/19 14:50 Hct 56.4 % (36.0-47.0) H* 03/31/19 14:50 MCV 112.5 fl (81.0-99.0) H 03/31/19 14:50 MCH 37.6 pg (27.0-31.0) H 03/31/19 14:50 MCHC 33.4 g/dL (33.0-37.0) 03/31/19 14:50 RDW 13.8 % (11.5-14.5) 03/31/19 14:50 Plt Count 305 K/mm3 (130-400) 03/31/19 14:50 MPV 7.6 fl (7.40-10.4) 03/31/19 14:50 Absolute Neuts (auto) 11.80 K/uL (1.8-6.8) H 03/31/19 14:50 Absolute Lymphs (auto) 1.70 K/uL (1.0-3.4) 03/31/19 14:50 Absolute Monos (auto) 1.10 K/uL (0.2-0.8) H 03/31/19 14:50 Absolute Eos (auto) 0.10 K/uL (0.0-0.4) 03/31/19 14:50 Absolute Basos (auto) 0.10 K/uL (0.0-0.1) 03/31/19 14:50 Neutrophils % 79.3 % (42.0-78.0) H 03/31/19 14:50 Lymphocytes % 11.8 % (20.0-50.0) L 03/31/19 14:50 Monocytes % 7.2 % (2.0-9.0) 03/31/19 14:50 Eosinophils % 1.0 % (1.0-5.0) 03/31/19 14:50 Basophils % 0.7 % (0.0-2.0) 03/31/19 14:50 D-Dimer, Quantitative 1.08 mg/L FEU (0-0.49) H* 03/31/19 14:50 Sodium 135 mmol/L (135-145) 03/31/19 14:50 Potassium 4.0 mmol/L (3.6-5.0) 03/31/19 14:50 Chloride 96 mmol/L (101-111) L 03/31/19 14:50 Carbon Dioxide 25 mmol/L (21-31) 03/31/19 14:50 Anion Gap 18.0 (12-18) 03/31/19 14:50 BUN 9 mg/dL (7-18) 03/31/19 14:50 Creatinine 0.73 mg/dL (0.6-1.3) 03/31/19 14:50 BUN/Creatinine Ratio 12.3 (10-20) 03/31/19 14:50 Random Glucose 113 mg/dL (70-105) H 03/31/19 14:50 Serum Osmolality 269.6 mOsm/L (275-295) L 03/31/19 14:50 Calcium 9.8 mg/dL (8.4-10.2) 03/31/19 14:50 Total Bilirubin 1.1 mg/dL (0.2-1.0) H 03/31/19 14:50 AST 22 IU/L (10-42) 03/31/19 14:50 ALT 13 IU/L (10-60) 03/31/19 14:50 Alkaline Phosphatase 106 IU/L (42-121) 03/31/19 14:50 B-Natriuretic Peptide 44.0 pg/ml (0-100) 03/31/19 14:50 Serum Total Protein 7.6 gm/dL (6.4-8.2) 03/31/19 14:50 Albumin 3.9 g/dl (3.2-5.5) 03/31/19 14:50 Globulin 3.7 gm/dL (2.3-3.5) H 03/31/19 14:50 Albumin/Globulin Ratio 1.1 (1.1-1.9) 03/31/19 14:50 - EKG/XRAY/CT EKG: Sinus, Tachy Departure - Departure Clinical Impression: Acute exacerbation of chronic obstructive airways disease Disposition: Admit Patient Home Medications: Ambulatory Orders RX: ALPRAZolam [Xanax] 1 mg PO TID PRN 01/29/14 Lisinopril & Hydrochlorothiazi [Lisinopril/Hydrochlorothi 20-25 mg] 1 tab PO DAILY 03/31/19
[2019-03-31] MEDS ORDERED: SODIUM CHLORIDE 0.9% 1000ML 1,000 ML IVS ONE (17:49)
--- NOTE | 2019-03-31 18:10 | CT ---
EXAM: CTA chest with contrast CLINICAL INDICATION: Abnormal D-dimer test, shortness of breath COMPARISON: None. TECHNIQUE: CTA of the chest was performed using contiguous axial 2.5mm postcontrast sections through the chest including IV contrast with 3-D reconstructions. This exam was performed according to our departmental dose-optimization program, which includes automated exposure control, adjustment of the mA and/or kV according to patient size and/or use of iterative reconstruction technique. FINDINGS: There is no evidence of pulmonary embolism. There are no findings to suggest aortic dissection. There are no enlarged mediastinal or hilar lymph nodes. The visualized portions of the upper abdominal structures are unremarkable. Multiple foci of atelectasis are noted in the lung apices, lingula, right middle lobe, and bilateral lower lobes. There is no pneumothorax or pleural effusion. IMPRESSION: No evidence of pulmonary embolism. Electronically signed by: Bunny Castelan MD 03/31/2019 6:09 PM DISTRICT EXTENSION SERVICE AGENT
--- NOTE | 2019-03-31 19:30 | HP ---
SUPERVISING PHYSICIAN: Dinesh Fernandes MD CHIEF COMPLAINT: Worsening shortness of breath. HISTORY OF PRESENT ILLNESS: Ms. Christian is a 48-year-old female patient that notes that she has been having some allergy type symptoms over the last week, but developed some shortness of breath last night with some wheezing and started feeling very fatigued and weak. She is a current smoker, approximately half a pack a day. She denied any chest pains, cough, fever or chills, but there was some shortness of breath with wheezing prompting her to present to the Emergency Room today for evaluation. In the Emergency Room, initially her vital signs indicated she was hypoxic on room air, satting in the low 80s to 86% at rest. She was tachycardic at 122 and also short of breath with respirations up to 32. She was given multiple breathing treatments which did help with resolution of her symptoms and with supplemental oxygen at 3 liters nasal cannula, she was satting 94%. Labs did show she had a leukocytosis of 14,800 with a hemoglobin and hematocrit increased at 18.9 and 56.4, respectively. MCV 112, MCH 137.6. Platelet count normal at 305,000. Differential did show a left shift. It was noted the patient been treated at some point within the last year for scurvy which she attributed to poor nutrition when she started having some anorexia and was not eating and had a significant weight loss. At that time, she was seen by Dr. Ball and Dr. Alicea and was given a questionable diagnosis of Crohn's disease. She has been pretty much asymptomatic in the last year and is followed by Dr. Fournier. She had elevated D-dimer at 1.[address] of the chest was without any signs of acute pulmonary embolus, but she also has a history of apparently having some micro blood clots she notes in her retinal area which she is not very specific about, but she denies any vision changes. Apparently these micro clots were present sometime in the last year, but she has not been on any blood thinners and has not been on any recent antibiotic coverage. 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 Given her hypoxia on room air and symptomatology with leukocytosis, a chest x-ray was also completed and per radiologic interpretation there were no acute findings within the chest other than hyperexpansion. Given her symptomatology and need for continued oxygenation by nasal cannula and leukocytosis, the patient is going to be admitted for chronic obstructive pulmonary disease exacerbation and further management. She was initially given Solu-Medrol in the Emergency Room and is now going to be admitted in stable condition. PAST MEDICAL HISTORY: 1. Hypertension. 2. Anxiety, for which she takes Xanax. 3. Questionable Crohn's, not officially diagnosed, but has seen Dr. Ball in the past. 4. Past history of scurvy related to poor nutrition, treated by Dr. Alicea and Dr. Ball. PAST SURGICAL HISTORY: 1. times 2. 2. Appendectomy. 3. Chest tube placement in her early 20s due to pneumonia and a pneumothorax. 4. Last colonoscopy was reportedly three years previously. HOME MEDICATIONS: 1. Xanax 1 mg t.i.d. p.r.n. 2. Lisinopril/hydrochlorothiazide 20-25 mg 1 tablet daily. ALLERGIES: AMPICILLIN. FAMILY HISTORY: Both parents are alive. Mother is healthy. Father had recent stroke. She has two siblings, a brother and a sister, both health. No other significant history is noted. 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 She lives in [place]. She is currently . She does smoke about half a pack of cigarettes a day and has since she was in her 20s. She drinks only on rare occasion. She denies any illicit drug use. REVIEW OF SYSTEMS: CONSTITUTIONAL: Negative for any subjective fevers. She notes she has had some chills and general malaise. HEENT: She noted some previous nasal congestion. Denies any current sinus headaches, sore throats, earaches, vision changes. RESPIRATORY: As noted in history of present illness, worsening shortness of breath with wheezing. CARDIOVASCULAR: Negative for chest pain, palpitations or syncopal episodes. GASTROINTESTINAL: Denies any actual abdominal pain or issues with constipation, diarrhea or any other bowel habit changes. MUSCULOSKELETAL: No reported joint swelling, arthralgias. SKIN: Denies any lesions, rashes, moles or unexplained changes. NEUROLOGIC: Negative for headaches, ataxia, seizures, vision changes, syncopal episodes or other focal deficits. HEMATOLOGIC: She notes she does have some easy bruising, but no unexplained bleeding or transfusion reactions. PHYSICAL EXAMINATION: VITAL SIGNS: Temperature initially on admission was 98.6. Pulse 122. Blood pressure 98/69. Respirations 32. Saturation 86% on room. After breathing treatments and fluids in the Emergency Room prior to admission, heart rate was down to 98, blood pressure 111/69, respirations 20, saturation 92% on nasal cannula at 2 liters at rest. Admission weight 57.2 kg. GENERAL: The patient does appear unwell. She is unkempt and obviously anxious, but appears to be in no acute distress. HEENT: Tympanic membranes clear bilaterally. Oropharynx is pink, moist without any lesions. NECK: Supple, nontender with full range of motion. No jugular venous distention noted. RESPIRATORY: Lung sounds were significantly diminished throughout with some notable inspiratory and expiratory wheezing with no appreciable rales or rhonchi. CARDIOVASCULAR: Regular rate and rhythm showing sinus rhythm on bedside monitor without any appreciable murmurs, gallops, or rubs. ABDOMEN: Soft, nontender. Positive bowel sounds. EXTREMITIES: There is no edema. NEUROLOGIC: The patient is alert and oriented times three. Cranial nerves II- XII are grossly intact. Facial features are symmetrical. Extraocular movements are within normal limits. There is no nystagmus noted. SKIN: Warm, pink and dry. LABORATORY: CBC showed white count 14,800, hemoglobin 18.9, hematocrit 56.4, MCV 112, MCH 37.6, differential does show a left shift. Coagulation studies just D-dimer completed was elevated at 1.08. Chemistry showed normal electrolytes with BUN 9, creatinine 0.73, calcium 9.8, bilirubin only slightly elevated at 1.1. Other liver functions within normal limits. Urinalysis pending. MICROBIOLOGY: Flu swab pending. Blood culture pending. RADIOLOGY: Chest x-ray in the Emergency Room prior to admission per radiologic interpretation showed hyperexpansion which could be reactive airway disease or emphysema. This was followed up with CTA of the chest given the elevated D- dimer to rule out pulmonary embolism. Findings showed no evidence of pulmonary embolism, no findings of aortic dissection, no large mediastinal lymph nodes and visualized portions of the upper abdomen structures were unremarkable. There was note of multiple foci of atelectasis noted in the lung apices as well as the right middle lobe and bilateral lower lobes. No pneumothorax or pleural effusion. ASSESSMENT: 1. Acute exacerbation of chronic obstructive pulmonary disease with concerns for bilateral pneumonia, community acquired. 2. Polycythemia with no history of polycythemia vera with RBC indices indicating a megaloblastic presentation. 3. Leukocytosis with tachycardia, concerning for sepsis secondary to #1 with noted hypoxia on admission on room air. 4. History of anxiety, exacerbated by #1. 5. Hypertension, controlled. 6. Questionable history of Crohn's disease and possibly scurvy within the last two years, having been followed by Dr. Ball with last colonoscopy three years previously with the patient not reporting any current gastrointestinal symptoms on admission. PLAN: Ms. Christian is going to be admitted and started on treatment for concern for community acquired pneumonia with exacerbation of chronic obstructive pulmonary disease. She was given steroids in the Emergency Room with Solu-Medrol. We will continue this and taper. I am going to cover her with antibiotics for atypicals with azithromycin and concern for strep pneumoniae with Rocephin. She will be on q.i.d. breathing treatments as needed p.r.n. as well. She will be on DVT prophylaxis with Lovenox. We will plan to give her some fluids overnight and see if possibly her hemoglobin and hematocrit are possibly elevated due to some mild dehydration. If it is still significantly elevated, it would be a good idea to touch base with Dr. Alicea to see if he has any concerns given the degree of polycythemia. She denies that she drinks any significant alcohol, but she does take Xanax fairly regularly for anxiety. We will start her on a regular diet as tolerated. Until the patient can transition to outpatient management, we will continue to monitor and treat as needed. #[id number] [facility]
[2019-03-31] MEDS ORDERED: SODIUM CHLORIDE 0.9% (FLUSH) 10 ML SYG IV PRN (20:28)
[2019-03-31] MEDS ORDERED: IV SET AND CAP CHANGE INJ INJ SCH (20:30)
[2019-03-31] MEDS ORDERED: ONDANSETRON INJ 4 MG/2 ML VIAL IV PRN (20:40)
[2019-03-31] MEDS ORDERED: SODIUM CHLORIDE 0.9% 250ML 250 ML ONE (20:52)
[2019-03-31] MEDS ORDERED: SODIUM CHL 0.9% 50ML MIN-BAG+ 50 ML IVPB ONE (20:53)
[2019-03-31] MEDS ORDERED: cefTRIAXone SODIUM 1 GM VIAL ONE (20:53)
[2019-03-31] MEDS ORDERED: AZITHROMYCIN IV 500 MG VIAL IVPB ONE (20:54)
[2019-03-31] MEDS: SODIUM CHLORIDE 0.9% 1000ML 1,000 ML IVS PRN (20:59)
[2019-03-31] MEDS: cefTRIAXone SODIUM 1 GM in SODIUM CHL 0.9% 50ML MIN-BAG+ 50 ML IVPB SCH (21:00)
[2019-03-31] MEDS: ALBUTEROL SULFATE 2.5 MG/3 ML VIAL NEB PRN (21:21)
[2019-03-31] MEDS ORDERED: ALPRAZolam 0.25 MG TAB ONE (21:33)
[2019-03-31] MEDS ORDERED: BUDESONIDE NEBS 0.25 MG/2 ML INH ONE (21:34)
[2019-03-31] MEDS: ALPRAZolam 0.25 MG TAB PO PRN (21:34)
[2019-03-31] MEDS: AZITHROMYCIN IV 500 MG in SODIUM CHLORIDE 0.9% 250ML 250 ML IVPB SCH (21:34)
[2019-03-31] MEDS: BUDESONIDE NEBS 0.5 MG/2 ML INH NEB SCH (21:41)
[2019-03-31] MEDS: methylPREDNISolone SODIUM SUC 40 MG/ML VIAL IV SCH (23:55)
[2019-04-01] MEDS ORDERED: ALPRAZolam 0.25 MG TAB ONE (05:40)
[2019-04-01] MEDS: methylPREDNISolone SODIUM SUC 40 MG/ML VIAL IV SCH (05:43)
[2019-04-01] MEDS: ALPRAZolam 0.25 MG TAB PO PRN (05:43)
[2019-04-01] MEDS: ALBUTEROL SULFATE 2.5 MG/3 ML VIAL NEB PRN (05:58)
--- NOTE | 2019-04-01 07:07 | RAD ---
EXAM: XR Chest, 2 Views CLINICAL HISTORY: The patient is 48 years old and is Female; Pneumonia TECHNIQUE: Frontal and lateral views of the chest. COMPARISON: Chest radiograph from 03/31/[address] from 03/31/2019 FINDINGS: LUNGS: There are ill-defined, somewhat patchy densities in the mid to lower lungs which are increased compared to the prior chest radiograph. PLEURAL SPACE: Unremarkable. No pneumothorax. HEART: No significant enlargement of the cardiac silhouette. MEDIASTINUM: Unremarkable. BONES/JOINTS: No acute osseous findings. IMPRESSION: Ill-defined, somewhat patchy opacities in the mid to lower lungs which are increased compared to the prior chest radiograph. Findings may represent areas of atelectasis and/or pneumonia. Electronically signed by: Marine Winston MD 04/01/2019 7:05 AM [facility]
[2019-04-01] MEDS: SODIUM CHLORIDE 0.9% 1000ML 1,000 ML IVS PRN ×2 (07:48→16:21)
[2019-04-01] MEDS: IPRATROPIUM/ALBUTEROL 3 ML VIAL INH SCH ×4 (08:50→20:06)
[2019-04-01] MEDS: BUDESONIDE NEBS 0.5 MG/2 ML INH NEB SCH ×2 (08:50→20:06)
[2019-04-01] MEDS ORDERED: ENOXAPARIN SODIUM 40 MG/0.4 ML SYG SUBCU SCH (09:00)
[2019-04-01] MEDS: ALPRAZolam 0.5 MG TAB PO PRN ×3 (09:33→22:48)
[2019-04-01] MEDS ORDERED: ENOXAPARIN SODIUM 30 MG/0.3 ML SYG SUBCU ONE (11:18)
[2019-04-01] MEDS ORDERED: ENOXAPARIN SODIUM 60 MG/0.6 ML SYG SUBCU ONE (11:29)
[2019-04-01] MEDS ORDERED: MORPHINE SULFATE INJ 10 MG/ML VIAL IV ONE (11:44)
--- NOTE | 2019-04-01 14:30 | PN ---
SUPERVISING PHYSICIAN: Samantha Cruz MD DATE: 04/01/19 SUBJECTIVE: The patient continues to have some shortness of breath and severe anxiety. She denied any real productive cough. She has had no chest pain. OBJECTIVE: VITAL SIGNS: Temperature 97.8. Pulse 103. Blood pressure 111/75. Respirations 16. Saturation 93% on 3.5 liters nasal cannula at rest. Weight 57.2 kg. GENERAL: The patient is sitting in bed, a little anxious, but alert. She appears to be in no acute distress. CHEST: Lung sounds continue to be diminished towards the bases, but improving with active deep inspiratory effort. No rales or rhonchi are noted. HEART: Regular rate and rhythm. ABDOMEN: Soft, nontender. Positive bowel sounds. EXTREMITIES: No edema. NEUROLOGIC: Alert and oriented times three. LABORATORY: White count up to 20,900 with hemoglobin down to 16.9, hematocrit 50.4. Differential does show a left shift with 1% bands. Chemistry is stable with BUN 12, creatinine 0.68, normal electrolytes. Calcium 8.6. MICROBIOLOGY: Influenza A and B swab negative by antigen. Blood cultures remain negative. RADIOLOGY: Chest x-ray this morning per radiologic interpretation shows ill- defined, somewhat patchy opacities in the mid to lower lungs which are increased from prior chest exam. Findings represent either atelectasis and/or pneumonia. Echocardiogram was completed this morning and showed left ventricular systolic function with preserved ejection fraction of 50% to 55% with some hyperdynamic wall movement, borderline right ventricular size. Small pericardial effusions were noted with a mild mitral and tricuspid valve regurgitation. ASSESSMENT: 1. Acute exacerbation of chronic obstructive pulmonary disease with developing bilateral pneumonia, community acquired. 2. Polycythemia with no history of polycythemia vera with RBC indices indicating a megaloblastic presentation. 3. Concerns for sepsis with a developing leukocytosis, persistent tachycardia and hypoxia on room air with radiographic studies indicating bilateral opacities and possibly developing community acquired pneumonia. 4. Mild respiratory distress with tachycardia, elevated D-dimer, but negative CTA for pulmonary embolism, but echocardiogram showing some mild right ventricular enlargement and slightly reduced ejection fraction of 50% to 55% and some hyperdynamic motion with the patient having a history of previous micro embolisms associated with possible Crohn's and showing some polycythemia on admission, all concerning for micro-embolisms resulting in a pulmonary embolism contributing to respiratory issues. 5. History of anxiety with exacerbation, secondary to #1. 6. Hypertension, controlled. 7. Questionable history of Crohn's disease and possible diagnosis of scurvy within the last two years from poor nutritional status, followed in the past by Dr. Ball with last colonoscopy within the last three years as well as having been seen by Dr. Alicea. PLAN: Given that she continues to have some shortness of breath and findings on the echocardiogram and her risk factors for pulmonary embolism, we will go ahead and start her on DVT/PE treatment with Lovenox 1 mg/kg. We will need to see if we can followup with Dr. 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 She will continue antibiotic coverage with Rocephin and azithromycin for treatment of bilateral pneumonia. She continues to have a significant amount of anxiety that is exacerbated by breathing treatments and steroids. We will continue treatment with some antianxiety medicine with Xanax and morphine as needed. We will start tapering on steroids and utilize inhaled steroids in the form of Pulmicort. If the patient continues to show improvement, we will start her on some oral steroids in the morning. Again, I have her on Lovenox 1 mg/kg. We will plan to follow her labs and chest x-rays and hopefully be able to transition her to outpatient management. Until then, we will continue to monitor and treat as needed. [id number]
[2019-04-01] MEDS ORDERED: SODIUM CHL 0.9% 50ML MIN-BAG+ 50 ML IVPB ONE (20:33)
[2019-04-01] MEDS ORDERED: SODIUM CHLORIDE 0.9% 250ML 250 ML ONE (20:33)
[2019-04-01] MEDS ORDERED: cefTRIAXone SODIUM 1 GM VIAL ONE (20:34)
[2019-04-01] MEDS ORDERED: AZITHROMYCIN IV 500 MG VIAL IVPB ONE (20:34)
[2019-04-01] MEDS: cefTRIAXone SODIUM 1 GM in SODIUM CHL 0.9% 50ML MIN-BAG+ 50 ML IVPB SCH (20:43)
[2019-04-01] MEDS: ENOXAPARIN SODIUM 60 MG/0.6 ML SYG SUBCU SCH (20:49)
[2019-04-01] MEDS: AZITHROMYCIN IV 500 MG in SODIUM CHLORIDE 0.9% 250ML 250 ML IVPB SCH (21:31)
[2019-04-01] MEDS: PROMETHAZINE W/CODEINE SYR 5 ML UD PO PRN (23:47)
[2019-04-02] MEDS: ACETAMINOPHEN 325 MG TAB PO PRN ×2 (01:16→20:55)
[2019-04-02] MEDS: ALBUTEROL SULFATE 2.5 MG/3 ML VIAL NEB PRN ×2 (02:30→06:32)
[2019-04-02] MEDS: PROMETHAZINE W/CODEINE SYR 5 ML UD PO PRN (05:18)
[2019-04-02] MEDS: ALPRAZolam 0.5 MG TAB PO PRN ×3 (05:18→21:00)
--- NOTE | 2019-04-02 06:20 | RAD ---
CHEST, TWO VIEW, XR CLINICAL HISTORY: Pneumonia. COMPARISON: 04/01/2019 TECHNIQUE: Frontal and lateral Chest. FINDINGS: There are diffuse bilateral coarse parenchymal opacities compatible with pneumonia which has relatively worsened. Lungs are hyperinflated. There are small bilateral pleural effusions. Heart is upper normal in size. Unremarkable soft tissues and bones. IMPRESSION: 1. Worsening diffuse bilateral pulmonary infiltrates with minimal bilateral pleural fluid. 2. COPD. Electronically signed by: Adrianna Back DO 04/02/2019 6:18 AM [facility]
[2019-04-02] MEDS ORDERED: POTASSIUM CHLORIDE 20 MEQ TAB PO ONE (08:28)
[2019-04-02] MEDS: BUDESONIDE NEBS 0.5 MG/2 ML INH NEB SCH ×2 (08:44→20:07)
[2019-04-02] MEDS: IPRATROPIUM/ALBUTEROL 3 ML VIAL INH SCH ×4 (08:44→20:06)
[2019-04-02] MEDS ORDERED: levoFLOXacin 500MG IV 100 ML IVPB ONE (09:07)
[2019-04-02] MEDS: levoFLOXacin 500MG IV 500 MG in PREMIX BAG 1 BAG IVPB SCH (09:17)
[2019-04-02] MEDS: predniSONE 20 MG TAB PO SCH (09:18)
[2019-04-02] MEDS: ENOXAPARIN SODIUM 60 MG/0.6 ML SYG SUBCU SCH (09:18)
[2019-04-02] MEDS ORDERED: MORPHINE SULFATE INJ 10 MG/ML VIAL IV ONE (10:08)
[2019-04-02] MEDS: guaiFENesin ER TAB 600 MG TAB PO SCH ×2 (10:26→21:00)
--- NOTE | 2019-04-02 10:45 | PN ---
SUPERVISING PHYSICIAN: Samantha Cruz MD DATE: 04/02/19 SUBJECTIVE: The patient is sitting up in bed. She is visibly short of breath. She gets short of breath with any exertion. She is also very scared. She is afraid she is going to . We discussed at length smoking cessation as well as the disease process of chronic obstructive pulmonary disease. Otherwise, she denies any nausea or vomiting. OBJECTIVE: VITAL SIGNS: T-max 24 hours is 101. Right now, it is 99.1. Heart rate 124. Blood pressure 110/68. Respiratory rate 21 to 28 breaths per minute. O2 saturation 93%, but it has gone down to as low as 85% on 2 liters nasal cannula. RESPIRATORY: A few expiratory wheezes scattered throughout, very diminished at the bases. She is tachypneic and has to speak in short phrases due to her shortness of breath. She also has to sit in a tripod type position due to her dyspnea. CARDIAC: Tachycardic rate and regular rhythm. GASTROINTESTINAL: Abdomen is soft, nondistended, nontender. Bowel sounds are positive. NEUROLOGIC: Awake, alert and oriented times three. LABORATORY: WBCs 20,500, hemoglobin 14.7, hematocrit 44.7. She does have a left shift on differential. Electrolytes are basically within normal limits with the exception of calcium being slightly low at 8.2 and potassium low at 3.4. Preliminary blood cultures show no growth after 24 hours and her sputum culture is pending. Chest x-ray shows worsening diffuse bilateral pulmonary infiltrates with minimal bilateral pleural fluid and COPD. All other labs and films have been reviewed via the EMR. ASSESSMENT: 1. Acute exacerbation of chronic obstructive pulmonary disease with developing bilateral pneumonia, community acquired. 2. Polycythemia with no history of polycythemia vera. Her values have somewhat normalized overnight. 3. Concerns for sepsis with a developing leukocytosis, persistent tachycardia and hypoxia on room air with radiographic studies indicating bilateral opacities and possibly developing community acquired pneumonia. 4. Mild respiratory distress with tachycardia, elevated D-dimer, but negative CTA for pulmonary embolism, but echocardiogram showing some mild right ventricular enlargement and slightly reduced ejection fraction of 50% to 55% and some hyperdynamic motion with the patient having a history of previous micro embolisms associated with possible Crohn's and showing some polycythemia on admission, all concerning for micro-embolisms resulting in a pulmonary embolism contributing to respiratory issues. 5. History of anxiety with exacerbation, secondary to #1. 6. Hypertension, controlled. 7. Questionable history of Crohn's disease and possible diagnosis of scurvy within the last two years from poor nutritional status, followed in the past by Dr. Ball with last colonoscopy within the last three years as well as having been seen by Dr. Alicea. PLAN: We will continue present supportive care. She continues to have shortness of breath most likely due to her chronic disease. We will need to go slowly on her steroid taper. We will continue her Lovenox treatment. I have a call into Dr. Alicea at this time to find out more information about her case. Her clinical picture does not seem to be improving, so I will continue the Rocephin, but I have discontinued the azithromycin and have started her on Levaquin and have had respiratory add some additional pulmonary hygiene. I have also ordered guaifenesin as well as some potassium supplementation. I have ordered lab and chest x-ray for in the morning. After the patient improves, she will need an ambulatory study to see if she needs home oxygen. We will continue to monitor the patient closely and follow as needed. [id number] [facility]
[2019-04-02] MEDS ORDERED: SODIUM CHL 0.9% 50ML MIN-BAG+ 50 ML IVPB ONE (19:36)
[2019-04-02] MEDS ORDERED: cefTRIAXone SODIUM 1 GM VIAL ONE (19:37)
[2019-04-02] MEDS: cefTRIAXone SODIUM 1 GM in SODIUM CHL 0.9% 50ML MIN-BAG+ 50 ML IVPB SCH (21:00)
[2019-04-03] MEDS: ALPRAZolam 0.5 MG TAB PO PRN ×2 (02:20→11:09)
[2019-04-03] MEDS: ACETAMINOPHEN 325 MG TAB PO PRN (05:56)
[2019-04-03] MEDS: ALBUTEROL SULFATE 2.5 MG/3 ML VIAL NEB PRN (06:07)
[2019-04-03] MEDS ORDERED: SODIUM CHLORIDE 0.9% 500ML 500 ML ONE (07:44)
[2019-04-03] MEDS ORDERED: SODIUM CHLORIDE 0.9% 500ML 500 ML IVS ONE (07:45)
[2019-04-03] MEDS: IPRATROPIUM/ALBUTEROL 3 ML VIAL INH SCH ×2 (08:12→13:30)
[2019-04-03] MEDS: BUDESONIDE NEBS 0.5 MG/2 ML INH NEB SCH (08:12)
[2019-04-03] MEDS ORDERED: levoFLOXacin 500MG IV 100 ML IVPB ONE (08:19)
[2019-04-03] MEDS: levoFLOXacin 500MG IV 500 MG in PREMIX BAG 1 BAG IVPB SCH (08:29)
[2019-04-03] MEDS: predniSONE 20 MG TAB PO SCH ×2 (08:32→10:04)
[2019-04-03] MEDS: guaiFENesin ER TAB 600 MG TAB PO SCH ×2 (08:32→10:05)
[2019-04-03] MEDS ORDERED: methylPREDNISolone SODIUM SUC 125 MG/2 ML VIAL IV ONE (08:51)
[2019-04-03] MEDS ORDERED: ENOXAPARIN SODIUM 40 MG/0.4 ML SYG SUBCU SCH (09:00)
[2019-04-03] MEDS ORDERED: MAGNESIUM SULFATE PREMIX 4GM 4 GM in PREMIX BAG 1 BAG IVPB ONE (09:04)
[2019-04-03] MEDS ORDERED: MAGNESIUM SULFATE PREMIX 4GM 50 ML IVPB ONE (10:05)
--- NOTE | 2019-04-03 10:50 | PN ---
SUPERVISING PHYSICIAN: Samantha Cruz MD DATE: 04/03/19 SUBJECTIVE: The patient is lying in bed. She has the BiPAP on. She is asleep, she wakens easily. She continues with complaints of shortness of breath and is worried about her health. We discussed her prognosis as well as her plan of care. She denies nausea or vomiting. OBJECTIVE: VITAL SIGNS: Temperature is 99.7 but T-max 24 hours is 101.4. Heart rate is 101. Blood pressure 104/66. Respiratory rate 32. oxygen saturation 97% on BiPAP. RESPIRATORY: Scattered expiratory wheezes in the apices, otherwise diminished breath sounds throughout but is improved since yesterday. She is tachypneic and is visibly short of breath when not on the BiPAP. . CARDIAC: Tachycardic rate and regular rhythm. GASTROINTESTINAL: Abdomen is soft, nondistended, nontender. Bowel sounds are positive. NEUROLOGIC: Awake, alert and oriented times three. LABORATORY: WBCs have gone up to 22,400, hemoglobin 15.4, hematocrit 45.4. Blood gases show a PC02 of 34, PO2 of 71, bicarb 24, pH 7.48. Oxygen saturation 96.7%. Electrolytes are basically within normal limits except her magnesium is low at 1.3. Bilirubin is up at 2.3, AST 59. Preliminary blood cultures showed no growth after 48 hours, sputum culture is pending. All other labs and films have been reviewed via the EMR. ASSESSMENT: 1. Acute exacerbation of chronic obstructive pulmonary disease with developing bilateral pneumonia, community acquired. 2. Polycythemia with no history of polycythemia vera. Her values have somewhat normalized. Concerns for sepsis as her WBCs continue to elevated. She has persistent tachycardia and hypoxia as well as an elevated temperature. 3. Bilateral pneumonia, presently on steroids, Levaquin and Rocephin. 4. Elevated D-dimer on admission but her CTA showed negative for pulmonary embolism. Called Dr. Alicea, her sap pi architect's office and she does not have a coagulopathy diagnosis. 5. Hyperbilirubinemia of unknown origin. 6. History of anxiety with exacerbation, secondary to #1, as well as shortness of breath. 7. Hypertension. 8. Questionable history of Crohn's disease and history of scurvy due to poor nutritional status, followed by Dr. Ball PLAN: We will continue present supportive care. I have started some IV fluids and she will also be on the BiPAP to help with her oxygenation. Will also do aggressive pulmonary hygiene. Will need to monitor her cultures closely as she is having poor response to her antibiotics and that may need to be changed but I will continue the Levaquin and Rocephin for now. I have given her a dose of Solu-Medrol to see if that assists with her respiratory status. Will also continue on the BiPAP. I have given her some magnesium replacement and will order a chest x-ray and lab for in the morning. We will continue to monitor the patient closely and follow as needed. [facility][id number] [facility]
[2019-04-03] MEDS ORDERED: SODIUM CHLORIDE 0.9% 100ML 100 ML IVPB ONE (13:23)
[2019-04-03] MEDS ORDERED: PIPERACILLIN/TAZOBACTAM 3.375 GM VIAL IVPB ONE (13:23)
[2019-04-03] MEDS ORDERED: PIPERACILLIN/TAZOBACTAM 3.375 GM in SODIUM CHLORIDE 0.9% 100ML 100 ML IVPB ONE (13:23)
[2019-04-03 14:32] VITALS: BP 150/80; TEMP 97.9; O2SAT 93
--- NOTE | 2019-04-09 14:52 | DS ---
SUPERVISING PHYSICIAN: Samantha Cruz MD SUBECTIVE: The patient continues to have extremely worsening shortness of breath. She also is extremely anxious and I am not sure if that is from air hunger or her underlying condition of anxiety. Her condition has worsened over the last few days and has actually worsened over the last few hours since previous examination. I called Dr. Segundo at [facility] who is the payroll human resources assistant molded goods controls operator at ICU at [facility] and he recommended the patient be transferred to [facility]. DISCHARGE DIAGNOSIS: 1. Acute exacerbation of chronic obstructive pulmonary disease with developing bilateral pneumonia, community acquired. 2. Polycythemia with no history of polycythemia vera. Her values have somewhat normalized. Concerns for sepsis as her WBCs continue to elevated. She has persistent tachycardia and hypoxia as well as an elevated temperature. 3. Bilateral pneumonia, presently on steroids, Levaquin and Rocephin. 4. Elevated D-dimer on admission but her CTA showed negative for pulmonary embolism. Dr. Alicea's office, her travel pta, was called and she does not have a coagulopathy diagnosis. 5. Hyperbilirubinemia of unknown origin. 6. History of anxiety with exacerbation, secondary to #1, as well as shortness of breath. 7. Hypertension. 8. Questionable history of Crohn's disease and history of scurvy due to poor nutritional status, followed by Dr. Ball. HISTORY OF PRESENT ILLNESS: Ms. Christian is a 48-year-old female patient that notes that she has been having some allergy type symptoms over the last week, but developed some shortness of breath last night with some wheezing and started feeling very fatigued and weak. She is a current smoker, approximately half a pack a day. She denied any chest pains, cough, fever or chills, but there was some shortness of breath with wheezing prompting her to present to the Emergency Room today for evaluation. In the Emergency Room, initially her vital signs indicated she was hypoxic on room air, satting in the low 80s to 86% at rest. She was tachycardic at 122 and also short of breath with respirations up to 32. She was given multiple breathing treatments which did help with resolution of her symptoms and with supplemental oxygen at 3 liters nasal cannula, she was satting 94%. Labs did show she had a leukocytosis of 14,800 with a hemoglobin and hematocrit increased at 18.9 and 56.4, respectively. MCV 112, MCH 137.6. Platelet count normal at 305,000. Differential did show a left shift. It was noted the patient been treated at some point within the last year for scurvy which she attributed to poor nutrition when she started having some anorexia and was not eating and had a significant weight loss. At that time, she was seen by Dr. Ball and Dr. Alicea and was given a questionable diagnosis of Crohn's disease. She has been pretty much asymptomatic in the last year and is followed by Dr. Fournier. She had elevated D-dimer at 1.[address] of the chest was without any signs of acute pulmonary embolus, but she also has a history of apparently having some micro blood clots she notes in her retinal area which she is not very specific about, but she denies any vision changes. Apparently these micro clots were present sometime in the last year, but she has not been on any blood thinners and has not been on any recent antibiotic coverage. 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 Given her hypoxia on room air and symptomatology with leukocytosis, a chest x-ray was also completed and per radiologic interpretation there were no acute findings within the chest other than hyperexpansion. Given her symptomatology and need for continued oxygenation by nasal cannula and leukocytosis, the patient is going to be admitted for chronic obstructive pulmonary disease exacerbation and further management. She was initially given Solu-Medrol in the Emergency Room and is now going to be admitted in stable condition. HOSPITAL COURSE: She was admitted to the hospital and started on treatment for concerns for community acquired pneumonia with exacerbation of chronic obstructive pulmonary disease. She was given steroids in the Emergency Room. They were tapered to p.o. We did have to go back up to IV steroids due to her worsening condition. She was also placed on Rocephin and azithromycin. She was on aggressive pulmonary hygiene that included scheduled breathing treatments as well as p.r.n. treatments. She was given Lovenox for DVT prophylaxis. She does have a history of pulmonary embolism in the past. Dr. Alicea, her travel pta, was called and he did not feel that she had any coagulopathy issues and although her D-dimer was elevated, her CT of the chest was negative. Over the next two days, aggressive pulmonary hygiene was continued. She actually had become so short of breath that she had to go to high flow oxygen and then later to BiPAP. Her echocardiogram shows left ventricular systolic dysfunction with preserved ejection fraction of 50% to 55%, but she had some hyperdynamic wall movement and was started on DVT dosing of Lovenox. She was also started on Pulmicort. She does have a significant history of tobacco use and smoking cessation was recommended at length. She started requiring BiPAP during the day to keep her oxygen saturations above 90. This morning, she actually was off the BiPAP for an hour or so with notable shortness of breath, but this afternoon, she required continuous BiPAP. I called Dr. Segundo, payroll professional and payroll human resources assistant at [facility] and he recommended that she be started on Zosyn and vancomycin and be transferred to [facility]. LABORATORY: Initial white count was 14,800. It went up to 20,900. This morning, it was 22,400. Hemoglobin and hematocrit stabilized at 15.2 and 45.5. She continued to have a left shift on differential with neutrophils 91.7% this morning. D-dimer was elevated at 1.08. Blood gas earlier this morning showed pCO2 34, pO2 71, bicarb 24.8, pH 7.48. Prior to discharge, her pCO2 was 40 with pO2 67, bicarb 26.2, pH 7.43. Her chemistries today showed electrolytes within normal limits with the exception that her chloride was 100. Creatinine 0.59, serum osmolality 269.4. Initial bilirubin was 1.1 and today is 2.3. Magnesium 1.3 and was given magnesium supplementation prior to discharge. AST 59, ALT 33, alkaline phosphatase 75, serum protein 5.9. Urinalysis was unremarkable. MICROBIOLOGY: Sputum culture was pending. Preliminary blood cultures showed no growth. RADIOLOGY: CTA of the chest and thorax showed no evidence of pulmonary embolism. Followup chest x-ray showed ill-defined, somewhat patchy opacities in the mid to lower lungs which are increased as compared to prior chest radiograph. Findings may represents atelectasis and/or pneumonia. Her next chest x-ray showed worsening diffuse bilateral pulmonary infiltrates with minimal bilateral pleural fluid and COPD. DISCHARGE PLAN: The patient will be discharged to [facility] in fair condition. A copy of her labs and radiology reports were sent with her as well as her medications she was taking in the hospital. Zosyn did get started prior to discharge, but her vancomycin did not and those were recommendations by Dr. Segundo. She is to followup with Dr. Fournier on discharge from [facility]. Smoking cessation was strongly encouraged. She will be transferred via ambulance to [facility]. DISCHARGE MEDICATIONS: 1. Xanax. 2. Lisinopril/hydrochlorothiazide. 3. Pulmicort. 4. Guaifenesin. 5. Prednisone. #[id number] [facility]
== END 2019-04-03 14:45 | disposition short-term general hospital (02) | DRG 871 ==
LOC: ER 14:37 → OBSVTOIN 19:29 → MS 19:29
PROVIDERS: ADMIT Nurse Practitioner Family; ATTEND Nurse Practitioner Acute Care
PROC: B32T1ZZ Computerized Tomography (CT Scan) of Left Pulmonary Artery using Low Osmolar Contrast (ICD-10-PCS; principal; 2019-03-31)
PROC: B32S1ZZ Computerized Tomography (CT Scan) of Right Pulmonary Artery using Low Osmolar Contrast (ICD-10-PCS; 2019-03-31)
DX: A41.9 Sepsis, unspecified organism (principal); J18.9 Pneumonia, unspecified organism; J44.1 Chronic obstructive pulmonary disease with (acute) exacerbation; J44.0 Chronic obstructive pulmonary disease with (acute) lower respiratory infection; F41.9 Anxiety disorder, unspecified; R09.02 Hypoxemia; R79.89 Other specified abnormal findings of blood chemistry; I10 Essential (primary) hypertension; E80.6 Other disorders of bilirubin metabolism; F17.210 Nicotine dependence, cigarettes, uncomplicated; Z86.711 Personal history of pulmonary embolism; Z88.0 Allergy status to penicillin; Z79.899 Other long term (current) drug therapy